=== PATIENT | male | born 1955 | race Two or more races ===

== ENCOUNTER 2025-06-27 04:10 | Inpatient (IN) | payer MEDICARE, MEDICAID ==
[~2025-06-27] VITALS: Ht 180.3 cm; Wt 94.6 kg
--- NOTE | 2025-06-27 05:01 | DVH ---
CHEST RADIOGRAPH Indication: cp/sob Technique: Single frontal view of the chest was obtained COMPARISON: XR CHEST 1 VIEW on DOS: 11/06/24, XR CHEST 1 VIEW on DOS: 11/05/24, XR CHEST 1 VIEW on DOS: 11/04/24, XR CHEST 1 VIEW on DOS: 10/03/24, XY CHEST TWO VIEWS ROUTINE on DOS: 07/29/24 FINDINGS: Lines and Tubes: None. Left anterior chest wall dual lead cardiac pacing device. Lungs: Clear Pleura: No effusion. No pneumothorax. Cardiomediastinal contours: Unremarkable Bones: Unremarkable. Hardware within the right glenohumeral joint status post reverse total shoulder arthroplasty. IMPRESSION: 1. No acute cardiopulmonary disease.
[2025-06-27 05:05] LABS: Alanine Aminotransferase 16 U/L (7-40); Albumin 4.2 g/dL (3.2-4.8); Alkaline Phosphatase 90 U/L (46-116); Anion Gap 11 (5-15); BUN/Creatinine Ratio 11.3 (10.0-20.0); Blood Urea Nitrogen 14 mg/dL (9-23); Calcium 9.2 mg/dL (8.7-10.4); Carbon Dioxide 25 mmol/L (20-31); Chloride 107 mmol/L (98-107); Potassium 3.6 mmol/L (3.5-5.1); Sodium 143 mmol/L (136-145); Total Protein 6.9 g/dL (5.7-8.2)
[2025-06-27 05:08] LABS: Bilirubin, Total 2.5 mg/dL (0.2-1.0); Glucose 128 mg/dL (74-106)
[2025-06-27 05:13] LABS: Hematocrit 44.3 % (41.0-53.0); Hemoglobin 14.9 g/dL (13.5-17.5); Mean Corpuscular Hemoglobin 28.9 pg (28.0-32.0); Mean Corpuscular Volume 85.7 fL (80.0-100.0); Nucleated Red Blood Cells % 0.2 %
--- NOTE | 2025-06-27 05:16 | ECG ---
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
--- NOTE | 2025-06-27 05:18 | ED.PDOC ---
HPI Comments 69-year-old male presented to the ER with a chief complaint of right-sided chest pain for the past 1 hour, patient woke up with chest pain, right-sided, non radiating, pressure and sharp, 10/10 in intensity, nonexertional related, did not take any aspirin, associated with pleuritic chest pain on deep breaths, and left upper extremity numbness and left lower extremity numbness but no motor deficits. Denies nausea/diaphoresis/orthopnea or PND. Denies any other systemic symptoms. Past medical history: Pacemaker placement, Hypertension, congestive heart failure-likely systolic. Dyslipidemia, former methamphetamine use, history of DVTs Home medications: Furosemide, Entresto, Eliquis,, Coreg, Jardiance Patient seen and examined in ER lobby. Chest pain has resolved at this time. EKG showed paced rhythm. Upper and lower extremity numbness has resolved. Blood pressure 170 systolic. Patient reports compliance to his medications. [id number] - MR # Attestation note: Dr. Tijerina: I was the supervising attending for this ED encounter. Please see the resident's notes. I was available for questions and consultations. Differential diagnosis: Ddx include but not limitied to gastritis, musculoskeletal pain, radiculopathy, atypical chest pain, dissection, aneurysm, ACS, unstable angina, hiatal hernia, GERD, anxiety, costochondritis, PE, pneumothroax, neoplasm, cardiac ischemia, drug abuse, anemia. MDM: MDM: patient presented with the above HPI.-chest pain shortness of breath-----workup was initiated. patient was found with the above mentioned diagnosis. the following medications were ordered: please refer to order lists of meds and tests obtained by myself Dr. Tijerina. Patient ED course and VS have been stabilized. Patient has been reassessed in the ED and remained in a stable condition. Pertinent incidental findings were discussed with the patient and/or family. Patient/family voices understanding and is agreeable with plan. Patient has been observed in the ED adequate length of time to insure improvement/stability. Escalation of care considered: Consideration of escalation to observation or admission Patient was ADMITTED to the medicine team for further evaluation and treatment of their presentation. All the reports of any imaging studies that were ordered by myself were reviewed by myself. Chief Complaint: Chest Pain Time Seen by MD: 04:44 Reviewed Notes: Nurses Notes Information Source: Patient Mode of Arrival: Ambulatory Constitutional: denies: chills, diaphoresis, fatigue, fever, malaise, sweats, weakness, others EENTM: denies: blurred vision, double vision, ear bleeding, ear discharge, ear drainage, ear pain, ear ringing, eye pain, eye redness, hearing loss, mouth pain, mouth swelling, nasal discharge, nose bleeding, nose congestion, nose pain, photophobia, tearing, throat pain, throat swelling, voice changes, others Respiratory: reports: others (Pleuritic chest pain) Cardiovascular: reports: chest pain Gastrointestinal: denies: abdomen distended, abdominal pain, blood streaked bowels, constipated, diarrhea, dysphagia, difficulty swallowing, hematemesis, melena, nausea, poor appetite, poor fluid intake, rectal bleeding, rectal pain, vomiting, others Genitourinary: denies: burning, dysuria, flank pain, frequency, hematuria, incontinence, penile discharge, penile sore, pain, testicle pain, testicle swelling, urgency, others Neurological: reports: left sided numbness, paresthesia Musculoskeletal: denies: back pain, gout, joint pain, joint swelling, muscle pain, muscle stiffness, neck pain, others Integumetry: denies: bruises, change in color, change in hair/nails, dryness, laceration, lesions, lumps, rash, wounds, others Allergic/Immunocompromised: denies: Difficulty Healing, Frequent Infections, Hives, Itching, others Hematologic/Lymphatic: denies: anemia, blood clots, easy bleeding, easy bruising, swollen glands, others Endocrine: denies: excessive hunger, excessive sweating, excessive thirst, excessive urination, flushing, intolerance to cold, intolerance to heat, unexplained weight gain, unexplained weight loss, others Psychiatric: denies: anxiety, bipolar disorder, depression, hopeless, panic disorder, schizophrenia, sleepless, suicidal, others Physical Exam General Appearance: No Apparent Distress, Normal HEENT: Pale Conjuntivae (L), Pale Conjuntivae (R) Neck: NOT DONE Respiratory: Decreased Breath Sounds, No Accessory Muscle Use, No Respiratory Distress Cardiovascular: Regular Rate/Rhythm Breast Exam: Deferred Gastrointestinal: No Organomegaly, Non Tender, No Pulsatile Mass, Normal Bowel Sounds, Soft Genitalia: Deferred Pelvic: Deferred Rectal: Deferred Extremities: Calf tenderness, No pedal edema Neurologic: Alert, No Motor Deficits, Normal Affect, Normal Mood, No Sensory Deficits, Other (Cranial nerves 1-12 intact, no facial asymmetry, no speech problem) Cerebellar Function: NOT DONE Reflexes: NOT DONE Skin: Dry Lymphatic: NOT DONE EKG EKG : Comments Paced rhythm Was a procedure done? Was a procedure done?: No CP Differential Dx Differential Diagnosis: Angina, Anxiety / Panic Attack, Heart Failure Differential Diagnosis: CHF, HTN Essential, HTN Accelerated Differential Diagnosis: Gastritis X-Ray, Labs, Meds, VS Vital Signs Date Time Temp Pulse Resp B/P (MAP) Pulse Ox O2 Delivery O2 Flow Rate FiO2 06/27/25 05:20 60 06/27/25 04:11 98.0 61 18 172/95 95 98.0 Lab Test 06/27/25 05:30 06/27/25 04:30 Range/Units Troponin I High Sensitivity 6 5 </=54 ng/L White Blood Count 7.8 4.4-10.8 10^3/uL Red Blood Count 5.17 4.5-5.90 10^6/uL Hemoglobin 14.9 13.5-17.5 g/dL Hematocrit 44.3 41.0-53.0 % Mean Corpuscular Volume 85.7 80.0-100.0 fL Mean Corpuscular Hemoglobin 28.9 28.0-32.0 pg Mean Corpuscular Hemoglobin Concent 33.7 32.0-36.0 g/dL Red Cell Distribution Width 17.3 H 11.8-14.3 % Platelet Count 161 140-450 10^3/uL Mean Platelet Volume 8.5 6.9-10.8 fL Neutrophils (%) (Auto) 68.8 37.0-80.0 % Lymphocytes (%) (Auto) 21.5 10.0-50.0 % Monocytes (%) (Auto) 7.2 0.0-12.0 % Eosinophils (%) (Auto) 1.6 0.0-7.0 % Basophils (%) (Auto) 0.9 0.0-2.0 % Neutrophils # (Auto) 5.3 1.6-8.6 10 ^3/uL Lymphocytes # (Auto) 1.7 0.4-5.4 10 ^3/uL Monocytes # (Auto) 0.6 0-1.3 10 ^3/uL Eosinophils # (Auto) 0.1 0-0.8 10 ^3/uL Basophils # (Auto) 0.1 0-0.2 10 ^3/uL Nucleated Red Blood Cells 0.2 % Sodium Level 143 136-145 mmol/L Potassium Level 3.6 3.5-5.1 mmol/L Chloride Level 107 98-107 mmol/L Carbon Dioxide Level 25 20-31 mmol/L Anion Gap 11 5-15 Blood Urea Nitrogen 14 9-23 mg/dL Creatinine 1.24 0.700-1.30 mg/dL Glomerular Filtration Rate Calc 62 >90 mL/min BUN/Creatinine Ratio 11.3 10.0-20.0 Serum Glucose 128 H 74-106 mg/dL Calcium Level 9.2 8.7-10.4 mg/dL Total Bilirubin 2.5 H 0.2-1.0 mg/dL Aspartate Amino Transferase (AST) 14 13-40 U/L Alanine Aminotransferase (ALT) 16 7-40 U/L Alkaline Phosphatase 90 46-116 U/L B-Type Natriuretic Peptide 124.62 0-100 pg/mL Total Protein 6.9 5.7-8.2 g/dL Albumin 4.2 3.2-4.8 g/dL X-Ray, Labs, Meds, VS Comment Chest x-ray shows 1. No acute cardiopulmonary disease. Images Reviewed?: Images reviewed and evaluated by me Time of 1ST Reevaluation: 05:30 Reevaluation 1ST: Improved Consultation: PCP Patient Education/Counseling: Diagnosis, Treatment Family Education/Counseling: Diagnosis, Treatment SEPSIS Sepsis Screen Date sepsis recognized/suspect: Jun 27, 2025 Time Sepsis recognized/suspect: 411 Recent Procedure: No On Antibiotic Therapy: No Respiratory Rate >20: No Heart Rate >90: No Temp<36 C (96.8 F) or >38.3 C: No SBP <90 or MAP <65 mmHG: No New Acute Mental Status Change: No Is the patient on CPAP, BIPAP,: No Physician Orders Rug Cleaner Helper (06/27/25 ) Chest Portable (06/27/25 04:19) Troponin-I Hs (06/27/25 07:19) Electrocardigram (06/27/25 07:19) Vital Signs Date Time Temp Pulse Resp B/P (MAP) Pulse Ox O2 Delivery O2 Flow Rate FiO2 06/27/25 05:20 60 06/27/25 04:11 98.0 61 18 172/95 95 98.0 Laboratory Tests Test 06/27/25 04:30 White Blood Count 7.8 10^3/uL (4.4-10.8) Departure 1 Departure Time of Disposition: 05:45 Impression: Primary Impression: Chest pain Disposition: 09 ADMITTED INPATIENT Admit to: Tele Condition: Guarded Discharged With: Self Critical Care Note Critical Care Time?: No Stability Stability form required: No Heart Score Heart Score: Heart Score Response (Comments) Value History Highly Suspicious 2 EKG Normal 0 Age >65 2 Risk Factors >3 or Hx ASHD 2 Troponin Normal limit 0 Total 6 TEOFILO DAVIS RESIDENT Jun 27, 2025 05:17 PATRICIA TIJERINA DO Jun 27, 2025 06:24
--- NOTE | 2025-06-27 06:14 | ECG ---
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
[2025-06-27] MEDS ORDERED: ONDANSETRON HCL 4 MG/2 ML VIAL IV PRN (07:15)
[2025-06-27] MEDS ORDERED: ACETAMINOPHEN 325 MG TAB PO PRN (07:15)
[2025-06-27] MEDS ORDERED: MORPHINE SULFATE 4 MG/ML SYR/VIAL IV PRN (07:15)
[2025-06-27] MEDS ORDERED: NITROGLYCERIN 0.4 MG SL TAB SL PRN ×2 (07:15→08:30)
--- NOTE | 2025-06-27 07:18 | DVHHP2 ---
History of Present Illness Reason for Visit: Chest pain History of Present Illness Humberto Robins is a 69-year-old male with past medical history of right shoulder surgery, pacemaker, hypertension, CHF, hyperlipidemia, meth use, and DVTs who presents to the ED with epigastric chest pain that radiated to his right arm which started this morning, reports 9/10 sharp and constant. Patient reports that there are no triggering or alleviating factors. Patient reports that he is compliant with his medications. Patient reports that he ambulates without any DMEs. Patient's girlfriend is at the bedside. Patient denies any recent trauma or injury, recent sick contacts, recent travels, recent ingestion of spoiled food, shortness of breath, fever, chills, lightheadedness, weakness, dizziness, abdominal pain, nausea, vomiting, diarrhea, or urinary symptoms. Patient also reports that he does not drink. Cardiovascular: CHF, HTN, hyperipidemia Past Medical History DVTs Past Surgical History: Other (Right shoulder surgery and pacemaker) Smoke: No ALCOHOL: none Drugs: Other (Quit meth) Lives: with Family Domestic Violence: Neg Review of Systems Cardiovascular: Chest Pain Exam Vital Signs Vital Signs Date Time Temp Pulse Resp B/P (MAP) Pulse Ox O2 Delivery O2 Flow Rate FiO2 06/27/25 05:20 60 06/27/25 04:11 98.0 18 172/95 95 98.0 General Appearance: Alert, Oriented X3, Cooperative, No acute distress HEENT: Atraumatic, PERRLA, EOMI, Mucous membr. moist/pink Respiratory: Clear to auscultation, Normal air movement Cardiovascular: Regular rate, Normal S1, Normal S2, No murmurs Abdominal: Soft Extremities: Normal pulses Neuro: Normal gait, Normal speech, Strength at 5/5 X4 ext, Normal tone, Sensation intact Psych/Mental Status: Mental status NL, Mood NL Labs/Xrays Labs Test 06/27/25 05:30 06/27/25 04:30 Range/Units Troponin I High Sensitivity 6 </=54 ng/L White Blood Count 7.8 4.4-10.8 10^3/uL Red Blood Count 5.17 4.5-5.90 10^6/uL Hemoglobin 14.9 13.5-17.5 g/dL Hematocrit 44.3 41.0-53.0 % Mean Corpuscular Volume 85.7 80.0-100.0 fL Mean Corpuscular Hemoglobin 28.9 28.0-32.0 pg Mean Corpuscular Hemoglobin Concent 33.7 32.0-36.0 g/dL Red Cell Distribution Width 17.3 H 11.8-14.3 % Platelet Count 161 140-450 10^3/uL Mean Platelet Volume 8.5 6.9-10.8 fL Neutrophils (%) (Auto) 68.8 37.0-80.0 % Lymphocytes (%) (Auto) 21.5 10.0-50.0 % Monocytes (%) (Auto) 7.2 0.0-12.0 % Eosinophils (%) (Auto) 1.6 0.0-7.0 % Basophils (%) (Auto) 0.9 0.0-2.0 % Neutrophils # (Auto) 5.3 1.6-8.6 10 ^3/uL Lymphocytes # (Auto) 1.7 0.4-5.4 10 ^3/uL Monocytes # (Auto) 0.6 0-1.3 10 ^3/uL Eosinophils # (Auto) 0.1 0-0.8 10 ^3/uL Basophils # (Auto) 0.1 0-0.2 10 ^3/uL Nucleated Red Blood Cells 0.2 % Sodium Level 143 136-145 mmol/L Potassium Level 3.6 3.5-5.1 mmol/L Chloride Level 107 98-107 mmol/L Carbon Dioxide Level 25 20-31 mmol/L Anion Gap 11 5-15 Blood Urea Nitrogen 14 9-23 mg/dL Creatinine 1.24 0.700-1.30 mg/dL Glomerular Filtration Rate Calc 62 >90 mL/min BUN/Creatinine Ratio 11.3 10.0-20.0 Serum Glucose 128 H 74-106 mg/dL Calcium Level 9.2 8.7-10.4 mg/dL Total Bilirubin 2.5 H 0.2-1.0 mg/dL Aspartate Amino Transferase (AST) 14 13-40 U/L Alanine Aminotransferase (ALT) 16 7-40 U/L Alkaline Phosphatase 90 46-116 U/L B-Type Natriuretic Peptide 124.62 0-100 pg/mL Total Protein 6.9 5.7-8.2 g/dL Albumin 4.2 3.2-4.8 g/dL CHEST RADIOGRAPH Indication: cp/sob Technique: Single frontal view of the chest was obtained COMPARISON: XR CHEST 1 VIEW on DOS: 11/06/24, XR CHEST 1 VIEW on DOS: 11/05/24, XR CHEST 1 VIEW on DOS: 11/04/24, XR CHEST 1 VIEW on DOS: 10/03/24, XY CHEST TWO VIEWS ROUTINE on DOS: 07/29/24 FINDINGS: Lines and Tubes: None. Left anterior chest wall dual lead cardiac pacing device. Lungs: Clear Pleura: No effusion. No pneumothorax. Cardiomediastinal contours: Unremarkable Bones: Unremarkable. Hardware within the right glenohumeral joint status post reverse total shoulder arthroplasty. IMPRESSION: 1. No acute cardiopulmonary disease. 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 (06/27/25 ) Chest Portable (06/27/25 04:19) Troponin-I Hs (06/27/25 07:19) Electrocardigram (06/27/25 07:19) Vital Signs Date Time Temp Pulse Resp B/P (MAP) Pulse Ox O2 Delivery O2 Flow Rate FiO2 06/27/25 05:20 60 06/27/25 04:11 98.0 61 18 172/95 95 98.0 Laboratory Tests Test 06/27/25 04:30 White Blood Count 7.8 10^3/uL (4.4-10.8) Assessment/Plan Assessment/Plan Assessment Chest pain rule out ACS Hyperbilirubinemia History of pacemaker History of hypertension History of CHF History of hyperlipidemia History of meth use History of DVTs History of right shoulder surgery Plan Admit to tele Antiemetics Pain management Aspirin + statin Trend T bili Alcohol level EKG-V paced Chest x-ray noted Troponin noted negative x2 BNP ACS workup Echo ordered Diurese Strict I&Os Daily weight Diet Home medications reconciled DVT prophylaxis-Lovenox PUD prophylaxis-H2 blockers Discussed plan of care with patient and nurse Consider GI consult if T bili does not trend down Resume warfarin on discharge Counseled patient on continuous of cessation of meth use 54918 Behavior change smoking greater than 10 minutes about use of other options also gave option of nicotine patch 81732 Preventive counseling healthy eating habits, physical activity, and regular checkups Plan discussed with: Patient Date of Service: Jun 27, 2025 Billing Provider: ZULEIKA ESPITIA Common Visit Codes: 60332-[id number] INP/OBS CARE (HIGH) Secondary Visit Codes: 96941-[id number] COUNSELING IND, 98128-WGDAY CHNG SMOKING >10MIN ZULEIKA ESPITIA Jun 27, 2025 07:18
--- NOTE | 2025-06-27 07:24 | ECG ---
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
[2025-06-27] MEDS ORDERED: CARV3.1240 PO (08:15)
[2025-06-27] MEDS ORDERED: SACU1TAB PO ×2 (08:15→17:38)
[2025-06-27] MEDS: ENOXAPARIN SOD 40 MG/0.4 ML SYRINGE SC SCH (08:15)
[2025-06-27] MEDS ORDERED: MORPHINE SULFATE INJ 2 MG/ml SYRG IV PRN (08:30)
[2025-06-27] MEDS: FUROSEMIDE 40 MG/4 ML VIAL IV SCH (10:00)
[2025-06-27] MEDS: FAMOTIDINE (10MG/ML) 2ML VL IV SCH (10:00)
[2025-06-27] MEDS: CARVEDILOL 3.125 MG TAB PO SCH (10:00)
[2025-06-27 10:44] LABS: Urine Protein, UAD Negative (Negative)
[2025-06-27 11:14] LABS: Amphetamine Screen, Urine Neg (NEGATIVE); Barbiturate Scree,Urine Neg (NEGATIVE); Benzodiazephine Screen, Urine Neg (NEGATIVE); Cocaine Screen, Urine Neg (NEGATIVE); Opiate Scree,Urine Neg (NEGATIVE); Phencyclidine Screen, Urine Neg (NEGATIVE)
[2025-06-27 11:15] LABS: Cannabinoid Screen, Urine Neg (NEGATIVE)
[2025-06-27] MEDS: SACUBITRIL-VALSARTAN 24mg/26mg TAB PO SCH (11:49)
[2025-06-27 13:34] VITALS: BP 136/68; PULSE 60; RESP 18; TEMP 97.5; O2SAT 95
[2025-06-27 17:00] VITALS: BP 130/74; PULSE 57; RESP 17; TEMP 97.5; O2SAT 96
[2025-06-27] MEDS ORDERED: ATOR40TA52 PO (17:38)
[2025-06-27] MEDS ORDERED: FURO1TAB33 PO (17:38)
[2025-06-27] MEDS ORDERED: BENZ100C97 PO (17:38)
[2025-06-27] MEDS ORDERED: MECL25CH38 PO (17:38)
[2025-06-27] MEDS ORDERED: DUPI200I SC (17:38)
[2025-06-27] MEDS ORDERED: EMPA1TAB PO (17:38)
[2025-06-27 20:00] VITALS: PULSE 60; PULSE 61; RESP 18
[2025-06-27 21:00] VITALS: BP 122/68; PULSE 60; RESP 18; TEMP 97.7; O2SAT 92
[2025-06-27] MEDS: ATORVASTATIN 20 MG TAB PO SCH (21:53)
[2025-06-28] VITALS (8 sets, daily range): BP systolic 106–133; BP diastolic 61–71; PULSE 60–66; RESP 17–18; TEMP 97.5–98.1; O2SAT 90–95
--- NOTE | 2025-06-28 00:50 | DVHSR ---
APPROVED REPORT EXAM: Two-dimensional and M-mode echocardiogram with Doppler and color Doppler. Blood Pressure: 139/67 mmHg INDICATION Chest Pain RISK FACTORS Height: 5'11", Weight: 222 DIMENSIONS LVDd5.7 (3.8-5.7cm)LA (2D)4.0 (1.9-4.0cm)Aortic Root3.5 (2.0-3.7cm) LVDs4.5 (2.5-4.0cm)LA (MM) (1.9-4.0cm)Aortic Cusp Exc1.9 (1.5-2.0cm) EF (%) 41.0 (55-70%)Rt. Atrium (1.9-4.0cm)Asc. Aorta3.3 cm IVSd0.7 (0.7-1.1cm)RV (D) (1.8-2.4cm) Mitral Valve MitralMitral Stenosis E wave0.67m/sMV Mean GR.mmHg A wave1.02m/sMV Peak GR.mmHg E/A ratio0.72D MVAcm2 DECEL [id number] 1/2 Tim[place] Aortic Valve Aortic ValveAortic Stenosis V10.70m/Cathi Mean GR.4mmHg V21.23m/Cathi Peak GR.6mmHg LVOT Diameter2.3 (1.8-2.4cm)Doppler AVA2.36cm2 Pulmonic Valve V20.95m/s Tricuspid Valve TR Velocity2.24m/s [id number] Other Information Quality : Technically LimitedRhythm : Technically limited study due to patient position. Conclusion MODERATELY DILATED LV MODERATE DEGREE LV GLOBAL HYPOKINESIS LV EF IS 25% AND IS MODERATELY REDUCED PACEMAKER IN RIGHT CARDIAC CHAMBERS NO EFFUSION GROSSLY NORMAL VALVES
[2025-06-28 07:06] LABS: Hematocrit 42.3 % (41.0-53.0); Hemoglobin 14.1 g/dL (13.5-17.5); Mean Corpuscular Hemoglobin 28.6 pg (28.0-32.0); Mean Corpuscular Volume 86.1 fL (80.0-100.0); Nucleated Red Blood Cells % 0.1 %
[2025-06-28 07:22] LABS: Anion Gap 9 (5-15); Carbon Dioxide 24 mmol/L (20-31); Potassium 3.7 mmol/L (3.5-5.1); Sodium 140 mmol/L (136-145)
[2025-06-28 07:27] LABS: Glucose 104 mg/dL (74-106)
[2025-06-28 07:28] LABS: BUN/Creatinine Ratio 15.2 (10.0-20.0); Blood Urea Nitrogen 17 mg/dL (9-23); Magnesium 2.2 mg/dL (1.6-2.6); Triglycerides 149 mg/dL (< 150)
[2025-06-28 07:30] LABS: Cholesterol 116 mg/dL (< 200)
[2025-06-28 07:33] LABS: Calcium 8.7 mg/dL (8.7-10.4); Chloride 107 mmol/L (98-107); HDL Cholesterol 28 mg/dL (40-59)
--- NOTE | 2025-06-28 11:19 | DVHPN2 ---
Subjective Feels better Reviewed: Care Plan, H&P, Labs, Medications, Previous Orders, Radiology Changes from previous H/P or p: No Changes Cardiovascular: Chest Pain Objective Vitals Vital Signs Date Time Temp Pulse Resp B/P (MAP) Pulse Ox O2 Delivery O2 Flow Rate FiO2 06/28/25 10:55 113/61 06/28/25 10:54 61 06/28/25 09:00 98.0 17 92 98.0 06/28/25 08:00 Room Air* 0 21 Intake/Output Intake and Output 06/28/25 07:00 Intake Total 1480 ml Balance 1480 ml Intake Oral 1480 ml # Voids 7 General Appearance: Alert, Oriented X3, Cooperative, No acute distress HEENT: Atraumatic Lungs: Clear to auscultation, Normal air movement Cardiovascular: Regular rate Abdomen: Normal bowel sounds, Soft, No tenderness Medications Current Medications Medications Dose Ordered Sig/Osmin Route Start Time Stop Time Status Last Admin Dose Admin Aspirin 81 mg DAILY PO 06/27/25 10:00 06/28/25 10:55 81 MG Atorvastatin Calcium 40 mg HS PO 06/27/25 22:00 06/27/25 21:53 40 MG Morphine Sulfate 2 mg Q30MP PRN IV 06/27/25 07:15 Acetaminophen 650 mg Q6HP PRN PO 06/27/25 07:15 Nitroglycerin 0.4 mg Q5MINP PRN SL 06/27/25 07:15 Ondansetron HCl 4 mg Q4HP PRN IV 06/27/25 07:15 Enoxaparin Sodium 40 mg DAILY SC 06/27/25 08:15 06/28/25 10:53 40 MG Carvedilol 3.125 mg BID PO 06/27/25 10:00 06/28/25 10:54 3.125 MG Sacubitril/ Valsartan 0.5 tab BID PO 06/27/25 10:00 06/28/25 10:53 0.5 TAB Furosemide 40 mg DAILY IV 06/27/25 10:00 06/28/25 10:55 40 MG Famotidine 20 mg DAILY IV 06/27/25 10:00 06/28/25 10:55 20 MG Laboratory Results Laboratory Tests 06/28/25 05:20 Chemistry Test 06/28/25 05:20 Calcium Level 8.7 mg/dL (8.7-10.4) Magnesium Level 2.2 mg/dL (1.6-2.6) Lipid panel Test 06/28/25 05:20 Cholesterol Level 116 mg/dL (< 200) HDL Cholesterol 28 mg/dL (40-59) L Triglycerides Level 149 mg/dL (< 150) LFT Test 06/28/25 05:20 Total Bilirubin 2.9 mg/dL (0.2-1.0) H Urinalysis Test 06/27/25 10:30 Urine Color Yellow (Yellow) Urine Clarity Clear (Clear) Urine pH 5.0 (5.0-9.0) Urine Specific [place] 1.036 (1.001-1.035) Urine Protein Negative (Negative) Urine Ketones Negative (Negative) Urine Blood Negative /uL (Negative) Urine Nitrite Negative (Negative) Urine Bilirubin Negative (Negative) Urine Urobilinogen Normal mg/dL (Negative) Urine Leukocyte Esterase Negative /uL (Negative) Urine RBC 1 /hpf (0 - 3) Urine Microscopic WBC 1 /HPF (0-3) Urine Squamous Epithelial Cells Few /hpf (<5) Urine Bacteria None seen /hpf (None Seen) Urine Glucose 4+ mg/dL (Normal) H Assessment/Plan Assessment/Plan Chest pain Hypertension Congestive heart failure Diabetes Dyslipidemia History of methamphetamine use Elevated TSH/possible hypothyroidism Plan: Continue current plan of care. We will notify Dr. Gamez been patient's bulb weeder. Check D-dimer. Check free T3 and T4. Might need thyroid replacement therapy. Further plan per orders Plan discussed with: Patient My Orders Orders - MICHELE CURRIE MD Procedure Category Date Status Time D-Dimer LAB 06/28/25 Logged 11:16 *Consult CONS 06/28/[address]Mukeshchandra Copeland 11:18 Date of Service: Jun 28, 2025 Billing Provider: MICHELE CURRIE MD Common Visit Codes: [id number] INP/OBS CARE(HIGH) MICHELE CURRIE MD Jun 28, 2025 11:19
[2025-06-29] VITALS (8 sets, daily range): BP systolic 106–131; BP diastolic 66–77; PULSE 60–75; RESP 14–18; TEMP 97.5–98.3; O2SAT 91–95
--- NOTE | 2025-06-29 00:49 | DVHINCON2 ---
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 Patient woke up with chest pain, right-sided, non radiating, pressure and sharp, /, nonexertional related, did not take any aspirin, associated with pleuritic chest pain on deep breaths, and left upper extremity numbness and left lower extremity numbness but no motor deficits. CBC and chemistry are WNL. Troponin is negative. Chest x-ray showed NAD. Patient was admitted to the hospital. I am asked to consult on this patient. Family History: Colon cancer G8 FATHER Diabetes mellitus G8 FATHER Allergies: Coded Allergies: NO KNOWN ALLERGIES (Unverified , 06/27/25) Home Meds Reported Medications Meclizine HCl (Meclizine) 25 Mg Chw, 25 MG PO, CHW 06/27/25 Empagliflozin (Jardiance) 10 Mg Tab, 10 MG PO, TAB 06/27/25 Benzonatate (Benzonatate) 100 Mg Cap, 1 CAP PO TID, #30 CAP 06/27/25 Sacubitril-Valsartan (Entresto 24-26 mg) 1 Tab Tab, 1 TAB PO, TAB 06/27/25 Furosemide (Lasix) 20 Mg Tb, 1 TAB PO DAILY, #30 TAB 5 Refills 06/27/25 Atorvastatin Calcium (ATORVASTATIN CALCIUM) 40 Mg Tab, 1 TAB PO DAILY, #30 TAB 5 Refills 06/27/25 Dupilumab (Asthma) (Dupixent) 200 Mg/1.14 Ml Inj, 200 MG SC, INJ 06/27/25 Sacubitril-Valsartan (Entresto 24-26 mg) 1 Tab Tab, 0.5 TAB PO BID 06/27/25 Carvedilol (Carvedilol) 3.125 Mg Tab, 1 TAB PO BID 06/27/25 Current Medications Current Medications Medications (Trade) Dose Ordered Sig/Osmin Route PRN Reason Start Time Stop Time Status Last Admin Atorvastatin Calcium (Lipitor) 40 mg HS PO 06/27/25 22:00 06/27/25 21:53 Empaglifozin (Jardiance) 10 mg DAILY PO 10/12/25 10:00 Review of Systems Constitutional: denies: chills, diaphoresis, fatigue, fever, malaise, sweats, weakness, others EENTM: denies: blurred vision, double vision, ear bleeding, ear discharge, ear drainage, ear pain, ear ringing, eye pain, eye redness, hearing loss, mouth pain, mouth swelling, nasal discharge, nose bleeding, nose congestion, nose pain, photophobia, tearing, throat pain, throat swelling, voice changes, others Respiratory: reports: others (Pleuritic chest pain) Cardiovascular: reports: chest pain Gastrointestinal: denies: abdomen distended, abdominal pain, blood streaked bowels, constipated, diarrhea, dysphagia, difficulty swallowing, hematemesis, me sharon, nausea, poor appetite, poor fluid intake, rectal bleeding, rectal pain, vomiting, others Genitourinary: denies: burning, dysuria, flank pain, frequency, hematuria, incontinence, penile discharge, penile sore, pain, testicle pain, testicle swelling, urgency, others Neurological: reports: left sided numbness, paresthesia Musculoskeletal: denies: back pain, gout, joint pain, joint swelling, muscle pain, muscle stiffness, neck pain, others Integumetry: denies: bruises, change in color, change in hair/nails, dryness, laceration, lesions, lumps, rash, wounds, others Allergic/Immunocompromised: denies: Difficulty Healing, Frequent Infections, Hives, Itching, others Hematologic/Lymphatic: denies: anemia, blood clots, easy bleeding, easy bruising, swollen glands, others Endocrine: denies: excessive hunger, excessive sweating, excessive thirst, excessive urination, flushing, intolerance to cold, intolerance to heat, unexplained weight gain, unexplained weight loss, others Psychiatric: denies: anxiety, bipolar disorder, depression, hopeless, panic disorder, schizophrenia, sleepless, suicidal, others Vital Signs Vital Signs Date Time Temp Pulse Resp B/P (MAP) Pulse Ox O2 Delivery O2 Flow Rate FiO2 06/28/25 17:00 97.7 60 17 107/62 (77) 94 97.7 06/28/25 08:00 Room Air* 0 21 Physical Exam GENERAL: Alert and oriented x 3. No acute distress. EYES: PERRL, EOMI. Anicteric. HENT: Moist mucous membranes. LUNGS: Clear to auscultation bilaterally. CARDIOVASCULAR: Regular rate and rhythm. ABDOMEN: Soft, nontender and nondistended. EXTREMITIES: No edema. NEUROLOGIC: No focal neurological deficits. SKIN: Warm, dry. Labs/Diagnostic Data Labs Test 06/28/25 12:12 06/28/25 05:20 06/27/25 10:30 06/27/25 07:31 Range/Units D-Dimer, Quantitative 0.40 0.0-0.49 mg/L FEU White Blood Count 7.3 4.4-10.8 10^3/uL Red Blood Count 4.92 4.5-5.90 10^6/uL Hemoglobin 14.1 13.5-17.5 g/dL Hematocrit 42.3 41.0-53.0 % Mean Corpuscular Volume 86.1 80.0-100.0 fL Mean Corpuscular Hemoglobin 28.6 28.0-32.0 pg Mean Corpuscular Hemoglobin Concent 33.2 32.0-36.0 g/dL Red Cell Distribution Width 16.8 H 11.8-14.3 % Platelet Count 144 140-450 10^3/uL Mean Platelet Volume 8.6 6.9-10.8 fL Neutrophils (%) (Auto) 68.0 37.0-80.0 % Lymphocytes (%) (Auto) 21.7 10.0-50.0 % Monocytes (%) (Auto) 6.6 0.0-12.0 % Eosinophils (%) (Auto) 2.6 0.0-7.0 % Basophils (%) (Auto) 1.1 0.0-2.0 % Neutrophils # (Auto) 5.0 1.6-8.6 10 ^3/uL Lymphocytes # (Auto) 1.6 0.4-5.4 10 ^3/uL Monocytes # (Auto) 0.5 0-1.3 10 ^3/uL Eosinophils # (Auto) 0.2 0-0.8 10 ^3/uL Basophils # (Auto) 0.1 0-0.2 10 ^3/uL Nucleated Red Blood Cells 0.1 % Erythrocyte Sedimentation Rate 2 0-20 mm/hr Sodium Level 140 136-145 mmol/L Potassium Level 3.7 3.5-5.1 mmol/L Chloride Level 107 98-107 mmol/L Carbon Dioxide Level 24 20-31 mmol/L Anion Gap 9 5-15 Blood Urea Nitrogen 17 9-23 mg/dL Creatinine 1.12 0.700-1.30 mg/dL Glomerular Filtration Rate Calc 70 >90 mL/min BUN/Creatinine Ratio 15.2 10.0-20.0 Serum Glucose 104 74-106 mg/dL Calcium Level 8.7 8.7-10.4 mg/dL Magnesium Level 2.2 1.6-2.6 mg/dL Total Bilirubin 2.9 H 0.2-1.0 mg/dL Troponin I High Sensitivity 4 </=54 ng/L Triglycerides Level 149 < 150 mg/dL Cholesterol Level 116 < 200 mg/dL LDL Cholesterol 71 < 100 mg/dL HDL Cholesterol 28 L 40-59 mg/dL Urine Color Yellow Yellow Urine Clarity Clear Clear Urine pH 5.0 5.0-9.0 Urine Specific [place] 1.036 H 1.001-1.035 Urine Protein Negative Negative Urine Ketones Negative Negative Urine Blood Negative Negative /uL Urine Nitrite Negative Negative Urine Bilirubin Negative Negative Urine Urobilinogen Normal Negative mg/dL Urine Leukocyte Esterase Negative Negative /uL Urine RBC 1 0 - 3 /hpf Urine Microscopic WBC 1 0-3 /HPF Urine Squamous Epithelial Cells Few <5 /hpf Urine Bacteria None seen None Seen /hpf Urine Glucose 4+ H Normal mg/dL Urine Opiates Screen Neg NEGATIVE Urine Fentanyl Screen Neg NEGATIVE Urine Barbiturates Screen Neg NEGATIVE Urine Phencyclidine Screen Neg NEGATIVE Urine Amphetamines Screen Neg NEGATIVE Urine Benzodiazepines Screen Neg NEGATIVE Urine Cocaine Screen Neg NEGATIVE Urine Cannabinoids Screen Neg NEGATIVE Thyroid Stimulating Hormone (TSH) 5.89 H 0.55-4.78 uIU/mL Plasma/Serum Blood Alcohol < 3.0 <10 mg/dL Test 06/27/25 04:30 Range/Units Hemoglobin A1c 6.9 H <5.7 % A1C Aspartate Amino Transferase (AST) 14 13-40 U/L Alanine Aminotransferase (ALT) 16 7-40 U/L Alkaline Phosphatase 90 46-116 U/L B-Type Natriuretic Peptide 124.62 0-100 pg/mL Total Protein 6.9 5.7-8.2 g/dL Albumin 4.2 3.2-4.8 g/dL Assessment Chest pain. Hyperbilirubinemia. History of pacemaker. Hypertension. CHF. Hyperlipidemia. History of meth use. History of DVTs . History of right shoulder surgery. Plan/Recommendation I agree with your ongoing assessment and care of plan. Echocardiogram. Aspirin, Lipitor. Coreg. DVT prophylactics. Diuretics with Lasix. Morphine for pain management. Entresto. Additional plan as per the hospital course. A total of 45 minutes was spent reviewing the patient record, examining the patient, making a diagnostic and therapeutic plan, discussing this plan with medical personnel, following up on diagnostic studies and following the patient for clinical stability excluding any and all procedures. At least 50% of this time was spent in direct, [id number] contact. Plan discussed with: Patient ANGE CUEVAS MD Jun 28, 2025 21:21
--- NOTE | 2025-06-29 09:22 | DVHPN2 ---
Subjective Feels better Reviewed: Care Plan, H&P, Labs, Medications, Previous Orders, Radiology Changes from previous H/P or p: No Changes Cardiovascular: Chest Pain Objective Vitals Vital Signs Date Time Temp Pulse Resp B/P (MAP) Pulse Ox O2 Delivery O2 Flow Rate FiO2 06/29/25 05:00 98.1 60 18 131/69 (89) 92 98.1 06/28/25 20:00 Room Air* 0 21 Intake/Output Intake and Output 06/29/25 07:00 Intake Total 1710 ml Balance 1710 ml Intake Oral 1710 ml # Voids 19 General Appearance: Alert, Oriented X3, Cooperative, No acute distress HEENT: Atraumatic Lungs: Clear to auscultation, Normal air movement Cardiovascular: Regular rate Abdomen: Normal bowel sounds, Soft, No tenderness Medications Current Medications Medications Dose Ordered Sig/Osmin Route Start Time Stop Time Status Last Admin Dose Admin Aspirin 81 mg DAILY PO 06/27/25 10:00 06/28/25 10:55 81 MG Atorvastatin Calcium 40 mg HS PO 06/27/25 22:00 06/28/25 21:46 40 MG Morphine Sulfate 2 mg Q30MP PRN IV 06/27/25 07:15 Acetaminophen 650 mg Q6HP PRN PO 06/27/25 07:15 Nitroglycerin 0.4 mg Q5MINP PRN SL 06/27/25 07:15 Ondansetron HCl 4 mg Q4HP PRN IV 06/27/25 07:15 Enoxaparin Sodium 40 mg DAILY SC 06/27/25 08:15 06/28/25 10:53 40 MG Carvedilol 3.125 mg BID PO 06/27/25 10:00 06/28/25 21:47 3.125 MG Sacubitril/ Valsartan 0.5 tab BID PO 06/27/25 10:00 06/28/25 21:47 0.5 TAB Furosemide 40 mg DAILY IV 06/27/25 10:00 06/28/25 10:55 40 MG Famotidine 20 mg DAILY IV 06/27/25 10:00 06/28/25 10:55 20 MG Empaglifozin 10 mg DAILY PO 06/29/25 10:00 Laboratory Results Laboratory Tests 06/28/25 05:20 Coagulation Test 06/28/25 12:12 D-Dimer, Quantitative 0.40 mg/L FEU (0.0-0.49) Urinalysis Test 06/27/25 10:30 Urine Color Yellow (Yellow) Urine Clarity Clear (Clear) Urine pH 5.0 (5.0-9.0) Urine Specific [place] 1.036 (1.001-1.035) Urine Protein Negative (Negative) Urine Ketones Negative (Negative) Urine Blood Negative /uL (Negative) Urine Nitrite Negative (Negative) Urine Bilirubin Negative (Negative) Urine Urobilinogen Normal mg/dL (Negative) Urine Leukocyte Esterase Negative /uL (Negative) Urine RBC 1 /hpf (0 - 3) Urine Microscopic WBC 1 /HPF (0-3) Urine Squamous Epithelial Cells Few /hpf (<5) Urine Bacteria None seen /hpf (None Seen) Urine Glucose 4+ mg/dL (Normal) H Assessment/Plan Assessment/Plan Chest pain Hypertension Congestive heart failure/25% ejection fraction and global hypokinesia Diabetes Dyslipidemia History of methamphetamine use Elevated TSH/possible hypothyroidism Plan: As per Cardiology. Sed rate negative. Plan discussed with: Patient My Orders Orders - MICHELE CURRIE MD Procedure Category Date Status Time *Consult CONS 06/28/[address]Mukeshchandra Copeland 11:18 Empagliflozin PHA 06/29/25 In Process (Jardiance) 10:00 Free T3 LAB 06/28/25 In Process 18:22 Free T4 (Free LAB 06/28/25 In Process Thyroxine) 18:22 C-Reactive Protein LAB 06/28/25 In Process 18:22 Date of Service: Jun 29, 2025 Billing Provider: MICHELE CURRIE MD Common Visit Codes: [id number] INP/OBS CARE(HIGH) MICHELE CURRIE MD Jun 29, 2025 09:22
[2025-06-29] MEDS: EMPAGLIFLOZIN 10 MG TAB PO SCH (09:40)
--- NOTE | 2025-06-29 23:50 | DVHPN2 ---
Progress Note - Dictate Date Seen: Jun 29, 2025 Medical Necessity Reason Pt with a Central, PICC or Fol: No Subjective Patient was seen and evaluated in follow up. No overnight events. Patient complains of chest discomfort. Echo is ordered/pending. Telemetry reviewed. vital signs Vital Sign Date Time Temp Pulse Resp B/P (MAP) Pulse Ox O2 Delivery O2 Flow Rate FiO2 06/29/25 10:40 72 135/71 06/29/25 09:00 97.6 18 95 97.6 06/29/25 08:00 Room Air* 0 21 Total Intake and Output 06/28/25 06/28/25 06/29/25 15:00 23:00 07:00 Intake Total 230 ml 1000 ml 480 ml Balance 230 ml 1000 ml 480 ml medications Current Medications Medications Dose Ordered Sig/Osmin Route Start Time Stop Time Status Last Admin Dose Admin Aspirin 81 mg DAILY PO 06/27/25 10:00 06/29/25 09:40 81 MG Atorvastatin Calcium 40 mg HS PO 06/27/25 22:00 06/28/25 21:46 40 MG Morphine Sulfate 2 mg Q30MP PRN IV 06/27/25 07:15 Acetaminophen 650 mg Q6HP PRN PO 06/27/25 07:15 Nitroglycerin 0.4 mg Q5MINP PRN SL 06/27/25 07:15 Ondansetron HCl 4 mg Q4HP PRN IV 06/27/25 07:15 Enoxaparin Sodium 40 mg DAILY SC 06/27/25 08:15 06/29/25 09:39 40 MG Carvedilol 3.125 mg BID PO 06/27/25 10:00 06/29/25 09:40 3.125 MG Sacubitril/ Valsartan 0.5 tab BID PO 06/27/25 10:00 06/29/25 09:55 0.5 TAB Furosemide 40 mg DAILY IV 06/27/25 10:00 06/29/25 09:41 40 MG Famotidine 20 mg DAILY IV 06/27/25 10:00 06/29/25 09:40 20 MG Empaglifozin 10 mg DAILY PO 06/29/25 10:00 06/29/25 09:40 10 MG objective GENERAL: Alert and oriented x 3. No acute distress. EYES: PERRL, EOMI. Anicteric. HENT: Moist mucous membranes. LUNGS: Clear to auscultation bilaterally. CARDIOVASCULAR: Regular rate and rhythm. ABDOMEN: Soft, nontender and nondistended. EXTREMITIES: No edema. NEUROLOGIC: No focal neurological deficits. SKIN: Warm, dry. laboratory and microbiology Laboratory Tests 06/28/25 05:20 Test 06/28/25 05:20 Range/Units Serum Glucose 104 74-106 mg/dL Problem List Chest pain. Hyperbilirubinemia. History of pacemaker. Hypertension. CHF. Hyperlipidemia. History of meth use. History of DVTs . History of right shoulder surgery. Assessment/Plan Continued all current supportive medical care. Echocardiogram. Aspirin. Coreg. DVT prophylactics. Diuretics with Lasix. Morphine for pain management. Entresto. Additional plan as per the hospital course. Plan discussed with: Patient ANGE CUEVAS MD Jun 29, 2025 13:51
[2025-06-30 01:00] VITALS: BP 117/74; PULSE 68; RESP 17; TEMP 97.8; O2SAT 93
[2025-06-30 05:00] VITALS: BP 134/75; PULSE 69; RESP 15; TEMP 97.8; O2SAT 95
[2025-06-30 08:00] VITALS: PULSE 74; PULSE 77; RESP 14; O2SAT 96
[2025-06-30 09:00] VITALS: BP 131/68; PULSE 67; RESP 18; TEMP 98.2; O2SAT 93
[2025-06-30 10:26] LABS: Free T3 3.12 pg/mL (2.3-4.2)
[2025-06-30 10:27] LABS: Free T4 (Free Thyroxine) 1.04 ng/dL (0.89-1.76)
--- NOTE | 2025-06-30 10:36 | DVHDS2 ---
Discharge Summary Date of Admission Jun 27, 2025 at 08:23 Date of Discharge: Jun 30, 2025 Labs/Diagnostic Data: Laboratory Results Test 06/28/25 12:12 06/28/25 05:20 06/27/25 10:30 06/27/25 07:31 D-Dimer, Quantitative 0.40 mg/L FEU (0.0-0.49) White Blood Count 7.3 10^3/uL (4.4-10.8) Red Blood Count 4.92 10^6/uL (4.5-5.90) Hemoglobin 14.1 g/dL (13.5-17.5) Hematocrit 42.3 % (41.0-53.0) Mean Corpuscular Volume 86.1 fL (80.0-100.0) Mean Corpuscular Hemoglobin 28.6 pg (28.0-32.0) Mean Corpuscular Hemoglobin Concent 33.2 g/dL (32.0-36.0) Red Cell Distribution Width 16.8 % (11.8-14.3) Platelet Count 144 10^3/uL (140-450) Mean Platelet Volume 8.6 fL (6.9-10.8) Neutrophils (%) (Auto) 68.0 % (37.0-80.0) Lymphocytes (%) (Auto) 21.7 % (10.0-50.0) Monocytes (%) (Auto) 6.6 % (0.0-12.0) Eosinophils (%) (Auto) 2.6 % (0.0-7.0) Basophils (%) (Auto) 1.1 % (0.0-2.0) Neutrophils # (Auto) 5.0 10 ^3/uL (1.6-8.6) Lymphocytes # (Auto) 1.6 10 ^3/uL (0.4-5.4) Monocytes # (Auto) 0.5 10 ^3/uL (0-1.3) Eosinophils # (Auto) 0.2 10 ^3/uL (0-0.8) Basophils # (Auto) 0.1 10 ^3/uL (0-0.2) Nucleated Red Blood Cells 0.1 % Erythrocyte Sedimentation Rate 2 mm/hr (0-20) Sodium Level 140 mmol/L (136-145) Potassium Level 3.7 mmol/L (3.5-5.1) Chloride Level 107 mmol/L (98-107) Carbon Dioxide Level 24 mmol/L (20-31) Anion Gap 9 (5-15) Blood Urea Nitrogen 17 mg/dL (9-23) Creatinine 1.12 mg/dL (0.700-1.30) Glomerular Filtration Rate Calc 70 mL/min (>90) BUN/Creatinine Ratio 15.2 (10.0-20.0) Serum Glucose 104 mg/dL (74-106) Calcium Level 8.7 mg/dL (8.7-10.4) Magnesium Level 2.2 mg/dL (1.6-2.6) Total Bilirubin 2.9 mg/dL (0.2-1.0) Troponin I High Sensitivity 4 ng/L (</=54) C-Reactive Protein High Sensitivity 0.31 mg/dL (<1.0) Triglycerides Level 149 mg/dL (< 150) Cholesterol Level 116 mg/dL (< 200) LDL Cholesterol 71 mg/dL (< 100) HDL Cholesterol 28 mg/dL (40-59) Free Thyroxine (T4) Calculated 1.04 ng/dL (0.89-1.76) Free Triiodothyronine (T3) pg/mL 3.12 pg/mL (2.3-4.2) Urine Color Yellow (Yellow) Urine Clarity Clear (Clear) Urine pH 5.0 (5.0-9.0) Urine Specific [place] 1.036 (1.001-1.035) Urine Protein Negative (Negative) Urine Ketones Negative (Negative) Urine Blood Negative /uL (Negative) Urine Nitrite Negative (Negative) Urine Bilirubin Negative (Negative) Urine Urobilinogen Normal mg/dL (Negative) Urine Leukocyte Esterase Negative /uL (Negative) Urine RBC 1 /hpf (0 - 3) Urine Microscopic WBC 1 /HPF (0-3) Urine Squamous Epithelial Cells Few /hpf (<5) Urine Bacteria None seen /hpf (None Seen) Urine Glucose 4+ mg/dL (Normal) Urine Opiates Screen Neg (NEGATIVE) Urine Fentanyl Screen Neg (NEGATIVE) Urine Barbiturates Screen Neg (NEGATIVE) Urine Phencyclidine Screen Neg (NEGATIVE) Urine Amphetamines Screen Neg (NEGATIVE) Urine Benzodiazepines Screen Neg (NEGATIVE) Urine Cocaine Screen Neg (NEGATIVE) Urine Cannabinoids Screen Neg (NEGATIVE) Thyroid Stimulating Hormone (TSH) 5.89 uIU/mL (0.55-4.78) Plasma/Serum Blood Alcohol < 3.0 mg/dL (<10) Test 06/27/25 04:30 Hemoglobin A1c 6.9 % A1C (<5.7) Aspartate Amino Transferase (AST) 14 U/L (13-40) Alanine Aminotransferase (ALT) 16 U/L (7-40) Alkaline Phosphatase 90 U/L (46-116) B-Type Natriuretic Peptide 124.62 pg/mL (0-100) Total Protein 6.9 g/dL (5.7-8.2) Albumin 4.2 g/dL (3.2-4.8) Other Laboratory Tests 06/28/25 05:20 Brief Hx & Hospital Course: see dictated note Condition at Discharge: Fair Final Diagnosis/Problems List chf Discharge Disposition: Home Discharge Instruct/Medications Diet: Cardiac 2g Na,low cholest Activity: No Restrictions, As Tolerated Follow Up/Referral: jazmine kim pcp/dr Tianna Gamez Medications: resume home meds Scheduled Atorvastatin Calcium (Atorvastatin Calcium), 1 TAB PO DAILY, (Reported) Benzonatate (Benzonatate), 1 CAP PO TID, (Reported) Carvedilol (Carvedilol), 1 TAB PO BID, (Reported) Furosemide (Lasix), 1 TAB PO DAILY, (Reported) Sacubitril-Valsartan (Entresto 24-26 mg), 0.5 TAB PO BID, (Reported) Miscellaneous Medications Dupilumab (Asthma) (Dupixent), 200 MG SC, (Reported) Empagliflozin (Jardiance), 10 MG PO, (Reported) Meclizine HCl (Meclizine), 25 MG PO, (Reported) Sacubitril-Valsartan (Entresto 24-26 mg), 1 TAB PO, (Reported) Discharge Statement: "Patient was advised to return to the ER or call 911 if any headaches, dizziness, shortness of breath, chest pain, abdominal pain, bleeding, fevers, or worsening of medical condition. Patient was counseled about treatment plan, medications, possible side effects, patientverbalized understanding. All questions were answered to the best of my ability. This discharge took greater then 30 minutes in planning, reviewing documentation, counseling the patient, and discussing with other team members." ASSESSMENT ASSESSMENT Assessment chf Date of Service: Jun 30, 2025 Billing Provider: TRAY SCHREIBER MD Common Visit Codes: [id number] DISCH DAY >30min Secondary Visit Codes: [id number] CARE PLAN 30 MINUTES TRAY SCHREIBER MD Jun 30, 2025 10:36
--- NOTE | 2025-06-30 11:00 | DVHDS ---
DATE OF DISCHARGE: 06/30/2025 HISTORY OF PRESENT ILLNESS: The patient is a 69-year-old gentleman who was admitted with complaints of epigastric pain and right arm pain. He has a history of congestive heart failure, pacemaker, hypertension, meth use, and DVTs. HOSPITAL COURSE: The patient's tox screen was negative. D-dimer was negative. Troponin levels were negative for acute [place]. BNP was within normal. His platelets were 161. The patient's chest x-ray showed evidence of a pacemaker. The patient was seen in cardiology consult by Dr. Kenn Gamez. Echocardiogram done, showed ejection fraction of 25%. The patient will now be discharged home. He is doing well. He has no symptoms. The patient will be discharged to resume his home medications and follow up with his primary and Dr. Gamez in the next 1 week. FINAL DIAGNOSES: * Chest pain, questionably due to GERD. * Acute on chronic systolic heart failure. * Hypertension. * History of DVT. * History of methamphetamine use. * Hyperlipidemia. * COPD/asthma. Time spent in discharge planning and review of plan with the patient and nursing was 37 minutes. MD MIRELA Petty/FRANSISCO TID: [id number] RECEIPT: [id number]
--- NOTE | 2025-06-30 23:32 | DVHPN2 ---
Progress Note - Dictate Date Seen: Jun 30, 2025 Medical Necessity Reason Pt with a Central, PICC or Fol: No Subjective Patient was seen and evaluated in follow up. Echo shows LV EF of 25%. Patient is cardiac stable for discharge. Telemetry reviewed. vital signs Vital Sign Date Time Temp Pulse Resp B/P (MAP) Pulse Ox O2 Delivery O2 Flow Rate FiO2 06/30/25 10:17 72 131/68 06/30/25 09:00 98.2 18 93 98.2 06/30/25 08:00 Room Air* 0 21 Total Intake and Output 06/29/25 06/29/25 06/30/25 14:59 22:59 06:59 Intake Total 500 ml 0 ml Balance 500 ml 0 ml objective GENERAL: Alert and oriented x 3. No acute distress. EYES: PERRL, EOMI. Anicteric. HENT: Moist mucous membranes. LUNGS: Clear to auscultation bilaterally. CARDIOVASCULAR: Regular rate and rhythm. ABDOMEN: Soft, nontender and nondistended. EXTREMITIES: No edema. NEUROLOGIC: No focal neurological deficits. SKIN: Warm, dry. laboratory and microbiology Laboratory Tests 06/28/25 05:20 Test 06/28/25 05:20 Range/Units Serum Glucose 104 74-106 mg/dL Problem List Chest pain. Hyperbilirubinemia. History of pacemaker. Hypertension. CHF. Hyperlipidemia. History of meth use. History of DVTs . History of right shoulder surgery. Assessment/Plan Continued all current supportive medical care. Echocardiogram. Aspirin. Coreg. DVT prophylactics. Diuretics with Lasix. Morphine for pain management. Entresto. Additional plan as per the hospital course. Plan discussed with: Patient ANGE CUEVAS MD Jun 30, 2025 23:32
== END 2025-06-30 15:25 | disposition home or self-care (01) | DRG 391 ==
LOC: ER 04:10 → OVERFLOW 08:23 → TELE-CENTR 13:04
PROVIDERS: ADMIT Internal Medicine; ATTEND Internal Medicine
DX: K21.9 Gastro-esophageal reflux disease without esophagitis (principal); I50.23 Acute on chronic systolic (congestive) heart failure; I24.9 Acute ischemic heart disease, unspecified; I11.0 Hypertensive heart disease with heart failure; E11.9 Type 2 diabetes mellitus without complications; E80.6 Other disorders of bilirubin metabolism; F15.90 Other stimulant use, unspecified, uncomplicated; R94.6 Abnormal results of thyroid function studies; J44.89 Other specified chronic obstructive pulmonary disease; E78.5 Hyperlipidemia, unspecified; Z86.718 Personal history of other venous thrombosis and embolism; Z95.0 Presence of cardiac pacemaker; Z79.01 Long term (current) use of anticoagulants; Z83.3 Family history of diabetes mellitus; Z80.0 Family history of malignant neoplasm of digestive organs
CPT/HCPCS: 36415; 71045; 80048; 80053; 80061; 80307; 80320; 81001; 82247; 83036; 83735; 83880; 84439; 84443; 84481; 84484; 85025; 85379; 85652; 86141; 93005; 93306; G0378; J3490